=== PATIENT | male | born 1990 | race African-American/Black ===

== ENCOUNTER 2017-07-01 08:08 | Emergency (ER) | payer OTHER, SELFPAY ==
[~2017-07-01] VITALS: Ht 177.8 cm; Wt 73.0 kg
[2017-07-01 08:10] VITALS: BP 136/74
[2017-07-01] MEDS ORDERED: PROMETHAZINE 25 MG/ML, 1ML ONE (13:09)
== END 2017-07-01 09:17 | disposition home or self-care (01) ==
LOC: ED 09:11
DX: K02.9 Dental caries, unspecified (principal); F17.210 Nicotine dependence, cigarettes, uncomplicated
CPT/HCPCS: 99283